=== PATIENT | female | born 1995 | race African-American/Black ===

== ENCOUNTER 2017-10-15 21:39 | Emergency (ER) | payer BC, OTHER ==
[2017-10-15] MEDS ORDERED: Ondansetron ODT TAB* 4 MG PO ONE (22:25)
--- NOTE | 2017-10-15 22:25 | ED ---
Head Injury - HPI Summary HPI Summary: 31-year-old female presents with a head injury today. She denies any vomiting but admits to nausea. She hasn't been taking anything for pain. Denies photophobia. She states she slipped on the wet floor after she had been mopping and fell backwards. She admits to dizziness. She denies any phonophobia. She admits to neck pain but has full range of motion of her neck. She denies any loss of consciousness. She states her headache is mild. - History Of Current Complaint Chief Complaint: EDHeadInjury Stated Complaint: FALL Time Seen by Provider: 10/15/17 21:50 Hx Last Menstrual Period: Implanon Pain Intensity: 8 - Allergies/Home Medications Allergies/Adverse Reactions: Allergies Allergy/AdvReac Type Severity Reaction Status Date / Time No Known Allergies Allergy Verified 10/25/14 10:18 PMH/Surg Hx/FS Hx/Imm Hx Endocrine/Hematology History: Denies: Hx Blood Disorders Cardiovascular History: Denies: Hx Myocardial Infarction Infectious Disease History: No Infectious Disease History: Denies: Traveled Outside the [place] in Last 30 Days - Family History Known Family History: Negative: Seizure Disorder - Social History Alcohol Use: None Substance Use Type: Reports: None Smoking Status (MU): Never Smoked Tobacco Review of Systems Negative: Fever Negative: Chest Pain Negative: Shortness Of Breath Positive: Nausea. Negative: Vomiting Positive: Myalgia - neck pain Positive: Headache All Other Systems Reviewed And Are Negative: Yes Physical Exam Triage Information Reviewed: Yes Vital Signs On Initial Exam: Initial Vitals Temp Pulse Resp BP Pulse Ox 99.0 F 88 16 95/71 100 10/15/17 21:41 10/15/17 21:41 10/15/17 21:41 10/15/17 21:41 10/15/17 21:41 Vital Signs Reviewed: Yes Appearance: Positive: Well-Appearing Skin: Positive: Warm, Dry Head/Face: Positive: Normal Head/Face Inspection, Other - no step off, racoon eyes, danielle sign Eyes: Positive: Normal, EOMI, ZEFERINO, Conjunctiva Clear ENT: Positive: Normal ENT inspection, Pharynx normal, TMs normal Respiratory/Lung Sounds: Positive: Clear to Auscultation, Breath Sounds Present Cardiovascular: Positive: Normal, RRR Musculoskeletal: Positive: Normal, Strength/ROM Intact - neck, Other - no midline tenderness neck Neurological: Positive: Sensory/Motor Intact, Alert, Oriented to Person Place, Time, CN Intact II-III, Finger to Nose - [place] Coma Scale Best Eye Response: 4 - Spontaneous Best Motor Response: 6 - Obeys Commands Best Verbal Response: 5 - Oriented Coma Scale Total: 15 Diagnostics - Vital Signs Vital Signs Temp Pulse Resp BP Pulse Ox 10/15/17 21:41 99.0 F 88 16 95/71 100 - Laboratory Lab Statement: Any lab studies that have been ordered have been reviewed, and results considered in the medical decision making process. Head Injury Course/Dx Course Of Treatment: 31-year-old female presents with a head injury today. She denies any vomiting but admits to nausea. She hasn't been taking anything for pain. Denies photophobia. She states she slipped on the wet floor after she had been mopping and fell backwards. She admits to dizziness. She denies any phonophobia. She admits to neck pain but has full range of motion of her neck. She denies any loss of consciousness. She states her headache is mild. On exam has no step up and normal neuro exam. Full range of motion of the neck and no midline tenderness. According to the [place] CT rules no imaging is required. We will treat nausea was Zofran and gave referral for primary. Patient understands and agrees with plan. - Diagnoses Differential Diagnosis/HQI/PQRI: Concussion Without LOC, Contusion, Intracranial Bleed Provider Diagnoses: Head injury, Neck pain Discharge - Discharge Plan Condition: Good Disposition: HOME Prescriptions: Ondansetron ODT TAB* [Zofran 4 MG Odt TAB*] 4 mg PO Q6H PRN #16 tab.odt PRN Reason: Nausea Patient Education Materials: Head Injury (ED) Referrals: Non Staff,Doctor [Primary Care Provider] - [facility] [place] [Outside] Additional Instructions: Take zofran every [address] ice on area as needed Take Tylenol or ibuprofen for headache every 6 hours Establish care with primary to follow up with Return to ED if develop vomiting, severe headache, change in behavior, or any new or worsening symptoms
[2017-10-15 22:36] VITALS: BP 123/81
== END 2017-10-15 22:35 | disposition home or self-care (01) ==
LOC: ED 21:39
DX: S09.90XA Unspecified injury of head, initial encounter (principal); W01.0XXA Fall on same level from slipping, tripping and stumbling without subsequent striking against object, initial encounter; Y93.E5 Activity, floor mopping and cleaning; Y92.9 Unspecified place or not applicable; M54.2 Cervicalgia; R11.0 Nausea; R51 Headache
CPT/HCPCS: 99282; A9270-GY

== ENCOUNTER 2018-08-31 10:33 | Emergency (ER) | payer BC ==
[2018-08-31 10:55] VITALS: BP 108/62
--- NOTE | 2018-08-31 11:28 | UC ---
UC General HPI - HPI Summary HPI Summary: Pt presents with c/o right hand pain, erythematous skin and mild swelling. Pt has a "bump" at base of right middle finger palmar aspect that pt describes as a tender lump that had a clear fluid filled vessicle that she lanced and drained at home. Now c/o mild swelling, tenderness and erythema at site. Also, pt has c/o URI like symptoms with cough, nasal congestion, bilateral ear pain and ST. - History of Current Complaint Chief Complaint: UCRespiratory Stated Complaint: DIZZY/CARLSON/FATIGUE/SKIN CONCERN Time Seen by Provider: 08/31/18 11:17 Hx Obtained From: Patient Hx Last Menstrual Period: unknown Onset/Duration: Gradual Onset, Lasting Days, Still Present Timing: Constant Onset Severity: Mild Current Severity: Mild Pain Intensity: 3 Associated Signs & Symptoms: Positive: Edema - Allergy/Home Medications Allergies/Adverse Reactions: Allergies Allergy/AdvReac Type Severity Reaction Status Date / Time No Known Allergies Allergy Verified 08/31/18 10:48 Home Medications: Home Medications Etonogestrel [Nexplanon] 68 mg IMPLANT ONCE 08/31/18 [History Confirmed 08/31/18 ] PMH/Surg Hx/FS Hx/Imm Hx Previously Healthy: Yes - Surgical History Surgical History: None - Family History Known Family History: Negative: Seizure Disorder - Social History Occupation: Employed Full-time Lives: With Family Alcohol Use: None Substance Use Type: None Smoking Status (MU): Never Smoked Tobacco Have You Smoked in the Last Year: No - Immunization History Most Recent Influenza Vaccination: August 2014 Review of Systems All Other Systems Reviewed And Are Negative: Yes Constitutional: Positive: Negative Skin: Positive: Negative Eyes: Positive: Negative ENT: Positive: Negative Respiratory: Positive: Negative Cardiovascular: Positive: Negative Gastrointestinal: Positive: Negative Genitourinary: Positive: Negative Motor: Positive: Decreased ROM - pain with rom right middle finger Neurovascular: Positive: Negative Musculoskeletal: Positive: Arthralgia, Edema, Myalgia Neurological: Positive: Negative Psychological: Positive: Negative Is Patient Immunocompromised?: No Physical Exam Triage Information Reviewed: Yes Appearance: Well-Appearing Vital Signs: Initial Vital Signs Temp 98.9 F 08/31/18 10:49 Pulse 70 08/31/18 10:49 Resp 15 08/31/18 10:49 BP 108/62 12/13/18 10:49 Pulse Ox 100 08/31/18 10:49 Vital Signs Reviewed: Yes Eye Exam: Normal ENT: Positive: Pharyngeal erythema, Nasal congestion Dental Exam: Normal Neck exam: Normal Respiratory Exam: Normal Cardiovascular Exam: Normal Musculoskeletal: Positive: Edema @ - base of right middle finger, thickened skin , callous or wart like with darkened center similar to plantar wart. Pt c/o pain with palpation. erythema extends from base palmar aspect of right middle finger to base of dorsal aspect of right middle finger. Neurological Exam: Normal Psychological Exam: Normal Skin Exam: Other - mild erythema right middle finger palmar aspec tot dorsal aspect, 1cm X 1 cm. callous, wart like area base of right middle finger palamar aspect with darkened center. similar to plantars wart. Course/Dx - Diagnoses Provider Diagnosis: Cellulitis, Wart Discharge - Sign-Out/Discharge Documenting (check all that apply): Patient Departure All imaging exams completed and their final reports reviewed: No Studies - Discharge Plan Condition: Stable Disposition: HOME Prescriptions: Cephalexin CAP* [Keflex 500 CAP*] 500 mg PO Q8H #21 cap Patient Education Materials: Cellulitis (ED), Common Wart (ED), Viral Syndrome (ED) Referrals: Makenzie Damon MD [Primary Care Provider] - As Soon As Possible - Billing Disposition and Condition Condition: STABLE Disposition: Home - Attestation Statements Provider Attestation: I was available for consult. This patient was seen by the MANISHA. The patient was not presented to, seen by, or examined by me. -Cristina
== END 2018-08-31 11:38 | disposition home or self-care (01) ==
LOC: UCCORT 10:33
DX: L03.113 Cellulitis of right upper limb (principal); B07.9 Viral wart, unspecified
CPT/HCPCS: 99212; G0463

== ENCOUNTER 2018-09-22 15:34 | Emergency (ER) | payer BC ==
[2018-09-22 16:32] VITALS: BP 98/67
--- NOTE | 2018-09-22 17:26 | UC ---
Lower Extremity/Ankle HPI - HPI Summary HPI Summary: 22 yo female c/o Left knee pain and swelling s/p basketball injury last evening approx 18:00. Fell backward, may have twisted knee. No p/d/w. No hip pain. No ankle / foot pain. No previous hx knee injury / pain. + ice last night. Took ibuprofen x 1 last night. - History of Current Complaint Chief Complaint: UCLowerExtremity Stated Complaint: LEFT LEG INJURY Time Seen by Provider: 09/22/18 17:25 Hx Obtained From: Patient Hx Last Menstrual Period: 09/01/18 Pain Intensity: 7 - Allergies/Home Medications Allergies/Adverse Reactions: Allergies Allergy/AdvReac Type Severity Reaction Status Date / Time No Known Allergies Allergy Verified 09/22/18 16:23 Home Medications: Home Medications Multivitamin [Multivitamins] 1 cap PO DAILY 09/22/18 [History Confirmed 09/22/18 ] PMH/Surg Hx/FS Hx/Imm Hx Previously Healthy: Yes - Surgical History Surgical History: None - Family History Known Family History: Negative: Seizure Disorder - Social History Alcohol Use: None Substance Use Type: None Smoking Status (MU): Never Smoked Tobacco Have You Smoked in the Last Year: No - Immunization History Most Recent Influenza Vaccination: August 2014 Review of Systems All Other Systems Reviewed And Are Negative: Yes Constitutional: Positive: Negative Skin: Positive: Negative - no bruise + swelling Eyes: Positive: Negative ENT: Positive: Negative Respiratory: Positive: Negative Cardiovascular: Positive: Negative Gastrointestinal: Positive: Negative Genitourinary: Positive: Negative Motor: Positive: Other - see hpi Neurovascular: Positive: Other - see hpi Musculoskeletal: Positive: Other: - see hpi Neurological: Positive: Negative Psychological: Positive: Negative Is Patient Immunocompromised?: No Physical Exam Triage Information Reviewed: Yes Appearance: Well-Appearing, Well-Nourished Vital Signs: Initial Vital Signs Temp 97.5 F 09/22/18 16:24 Pulse 83 09/22/18 16:24 Resp 16 09/22/18 16:24 BP 98/67 09/22/18 16:24 Pulse Ox 100 09/22/18 16:24 Vital Signs Reviewed: Yes Eye Exam: Normal - grossly nad ENT Exam: Normal - grossly nad Neck exam: Normal Respiratory Exam: Normal - resp rate normal No tachypnea, no dyspnea. Cardiovascular Exam: Normal - HR normal. Nondiaphoretic. Abdominal Exam: Normal Abdomen Description: Positive: Nontender Musculoskeletal Exam: Other - Left post knee swelling (perez's cyst?) + swelling ant inf knee with mild crepitus. ++ tender lat knee, and lat rotation. Painful to straighten, better slightly bent. Able to ambulate but with limp Neurological Exam: Normal - Distal + sens present LT Psychological Exam: Normal Skin Exam: Normal - see jailene woods re knee Lower Extremity Course/Dx - Course Course Of Treatment: Reviewed coa / tx plan. Questions as posed answered to the best of my ability. Crutches highly recommended. F/u PCP, routine. R/u Orthodist, referral today (or pt may call pcp for referral). Reviewed xray with pt. Prelim reading + sts, + effusion, no fx. Reviewed that formal radiology reading will be completed tomorrow. Declined vikki here, will acquire outpt knee wrap. Reviewed coa / tx plan. Questions as posed answered to the best of my ability. - Differential Dx/Diagnosis Provider Diagnosis: Left knee injury, Left knee sprain Discharge - Sign-Out/Discharge Documenting (check all that apply): Patient Departure All imaging exams completed and their final reports reviewed: No - Discharge Plan Condition: Stable Disposition: HOME Prescriptions: Ibuprofen TAB* [Motrin TAB* 600 MG] 600 mg PO Q8H PRN #30 tab PRN Reason: Pain Patient Education Materials: Knee Sprain (ED), Crutch Instructions (ED), Swollen Knee Joint (ED) Forms: *Work Release Referrals: Blas Figueroa MD [Medical Doctor] - Makenzie Damon MD [Primary Care Provider] - Additional Instructions: Follow up with your primary care physician, per routine. Call next week to let her know how you are doing. You should follow up with an orthopedic doctor in the next 1-2 weeks. Seek medical attention sooner for worse or new problems in the meantime. Elevate your leg as much as possible. Minimize activity until otherwise clarified by orthopedic doctor. - Billing Disposition and Condition Condition: STABLE Disposition: Home
[2018-09-22] MEDS ORDERED: Ibuprofen TAB* 600 MG PO ONE (17:35)
--- NOTE | 2018-09-25 09:51 | UC ---
- Progress Note Progress Note: Patient Name: SIXTO RESENDIZ Medical Record#: [id number] Ordering Physician: Jeniffer Ashby MD Acct.#: [id number] : 1995 Age: 22 Sex: F Location: [facility] Exam Date: 09/22/181733 ADM Status: [facility] ER Order Information: KNEE LEFT 4+ VWS Accession Number: [id number] CPT: 13756 INDICATION: Left knee pain and swelling after basketball injury the previous night COMPARISON: None TECHNIQUE: 4 view radiograph of the left knee. FINDINGS: The visualized bones are well-corticated and properly aligned. The joint spaces are properly maintained. There is no radiographic evidence of joint effusion. There is no acute fracture, dislocation or other focal bony abnormality. IMPRESSION: Normal knee radiograph as described above. If the patient's symptoms persist, follow-up imaging is recommended. R2 Preliminary Imaging Read R2 <Electronically signed by Mayito Hernandez MD in OV> 09/23/18726 Dictated By: Mayito Hernandez MD Dictated Date/Time: 09/23/18726 Transcribed Date/Time: 09/23/18725 Copy to: CC:Jeniffer Ashyb MD; Makenzie Damon MD Imaging - [facility] Imaging [facility]gent [facility] [address] [place] [address] ph ([phone]) ph ([phone]) ph ([phone]) This report is only to be considered final once signed by the Provider(s) as displayed in the "<Electronically Signed by >" field (s). Absence of a signature indicates the report is in a draft status and still needs to be finalized. In the event this document was created by someone other than the signing Provider, the individual initiating the document will be listed in the "Entered by:" or "Dictated by:" donovan. 1 of 1 Course/Dx - Diagnoses Provider Diagnoses: Left knee injury, Left knee sprain Discharge - Sign-Out/Discharge Documenting (check all that apply): Post-Discharge Follow Up All imaging exams completed and their final reports reviewed: Yes - Discharge Plan Condition: Stable Disposition: HOME Prescriptions: Ibuprofen TAB* [Motrin TAB* 600 MG] 600 mg PO Q8H PRN #30 tab PRN Reason: Pain Patient Education Materials: Knee Sprain (ED), Crutch Instructions (ED), Swollen Knee Joint (ED) Forms: *Work Release Referrals: Blas Figueroa MD [Medical Doctor] - Makenzie Damon MD [Primary Care Provider] - Additional Instructions: Follow up with your primary care physician, per routine. Call next week to let her know how you are doing. You should follow up with an orthopedic doctor in the next 1-2 weeks. Seek medical attention sooner for worse or new problems in the meantime. Elevate your leg as much as possible. Minimize activity until otherwise clarified by orthopedic doctor. - Billing Disposition and Condition Condition: STABLE Disposition: Home
== END 2018-09-22 18:55 | disposition home or self-care (01) ==
LOC: UCCORT 15:34
DX: S89.92XA Unspecified injury of left lower leg, initial encounter (principal); S83.92XA Sprain of unspecified site of left knee, initial encounter; W19.XXXA Unspecified fall, initial encounter; Y93.67 Activity, basketball; Y92.9 Unspecified place or not applicable
CPT/HCPCS: 99213; A9270-GY; G0463

== ENCOUNTER 2019-05-05 16:16 | Emergency (ER) | payer BC ==
--- NOTE | 2019-05-05 16:20 | UC ---
Respiratory Complaint HPI - HPI Summary HPI Summary: Patient presents to urgent care stating for the last 6 days she's had fevers to 101.2 max. Patient states she is been taking antipyretics. Patient's visual yesterday she's developed a cough is productive of thick green sputum. Patient denies nausea or vomiting. States she has some chest discomfort related to coughing. Patient is denies shortness of breath. No abdominal pain. No nausea vomiting or diarrhea. Patient's been able to eat and drink okay. Patient's significant other was evaluated at urgent care this week and diagnosed with pharyngitis and started on antibiotics. States he is trying to feel better. Patient does not have a sore throat. Patient is not immunocompromised. States she is not . Medications reviewed this visit. - History of Current Complaint Stated Complaint: FEVER,COUGH Time Seen by Provider: 05/05/19 16:19 Hx Obtained From: Patient Hx Last Menstrual Period: 09/01/18 - Allergies/Home Medications Allergies/Adverse Reactions: Allergies Allergy/AdvReac Type Severity Reaction Status Date / Time No Known Allergies Allergy Verified 05/05/19 16:22 PMH/Surg Hx/FS Hx/Imm Hx Previously Healthy: Yes - Surgical History Surgical History: None - Family History Known Family History: Positive: Non-Contributory Negative: Seizure Disorder - Social History Lives: With Family Alcohol Use: None Substance Use Type: None Smoking Status (MU): Never Smoked Tobacco Have You Smoked in the Last Year: No - Immunization History Most Recent Influenza Vaccination: August 2014 Review of Systems All Other Systems Reviewed And Are Negative: Yes Constitutional: Positive: Fever, Fatigue Respiratory: Positive: Cough Cardiovascular: Positive: Negative Gastrointestinal: Positive: Negative Genitourinary: Positive: Negative Motor: Positive: Negative Neurovascular: Positive: Negative Musculoskeletal: Positive: Negative Neurological: Positive: Negative Psychological: Positive: Negative Is Patient Immunocompromised?: No Physical Exam - Summary Physical Exam Summary: Vital Signs Reviewed: Yes A+Ox3, no distress Eyes: Conjunctiva Clear, ZEFERINO. 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 Coughing decreased. Patient still has respiratory wheezing bilaterally however coarse sounds have improved. Review chest x-ray with patient. We'll put on Doxy. Albuterol. Patient given work note for Tuesday as well as Tuesday. Patient strict return precautions. Comfortable in agreement with plan. Respiratory Course/Dx - Course Course Of Treatment: Patient presents with 5-6 days of fevers and 2 days of productive green sputum. Patient also with fatigue. Patient's been taking [id number] cough medicine as well as antipyretics for fevers the MAXIMUM TEMPERATURE of 102. Patient states she continues to feel run down. Significant I was present antibiotics for pharyngitis this week. Vital signs are stable. Patient does have coarse breath sounds bilaterally right more than left. We'll check chest x -ray give a DuoNeb reassessed patient comfortable in agreement with plan. - Differential Dx/Diagnosis Provider Diagnosis: Pneumonia Discharge - Sign-Out/Discharge Documenting (check all that apply): Patient Departure All imaging exams completed and their final reports reviewed: No Studies - Discharge Plan Condition: Stable Disposition: HOME Prescriptions: Albuterol HFA INHALER* [Ventolin HFA Inhaler*] 2 puff INH Q4H PRN #1 mdi PRN Reason: wheeze DOXYcycline CAP(*) [DOXYcycline 100MG CAP(*)] 100 mg PO BID #20 cap Inhaler, Assist Devices [Aerochamber Mv] 1 each PO Q4HR #1 spacer Patient Education Materials: Pneumonia (ED) Forms: *Gen. Provider Communication, *Work Release Referrals: Makenzie Damon MD [Primary Care Provider] - Additional Instructions: -Take antibiotics exactly as prescribed until gone -Use your albuterol puffer - 2 puffs every 4 hours for the next 2 days - then as needed -Stay well hydrated - avoid excess caffeine and all alcohol - eat regular, healthy meals - - humidify the air in the room where you sleep - boil water, run a hot steam shower, vaporizer, cups of water by heat register - okay to take over the counter decongestant and cough medication -- These infections are spread by secretions - do NOT share eating or drinking utensils - clean items you share with other people such as cell phones, computer mouse, TV remote, computer tablets,etc.. Once you have been antibiotics for 2 days, change your toothbrush and your pillowcase. -get plenty of restful sleep -Contact your doctor to arrange a follow-up appointment this week. Call your doctor, return here or go to the emergency department with any questions or concerns - Billing Disposition and Condition Condition: STABLE Disposition: Home
[2019-05-05 16:25] VITALS: BP 121/70
[2019-05-05] MEDS ORDERED: Albuterol/Ipratropium NEB.SOL* Albuterol 2.5 MG/Ipratropium 0.5 MG 3 ML INH ONE (16:31)
== END 2019-05-05 17:17 | disposition home or self-care (01) ==
LOC: UCCORT 16:16
DX: J18.9 Pneumonia, unspecified organism (principal)
CPT/HCPCS: 71046; 99212; A9270-GY; G0463

== ENCOUNTER 2021-09-29 14:33 | Inpatient (IN) ==
[2021-09-29 16:03] LABS: Urine Benzodiazepine Screen None Detected (None Detect); Urine Cannabinoids Screen None Detected (None Detect); Urine Opiates Screen None Detected (None Detect)
[2021-09-29] MEDS ORDERED: Buffered Lidocaine 1% SYRIN 1 ml INTRADERM ONE (17:45)
[2021-09-29] MEDS ORDERED: Lactated Ringers 1000 ml BAG 1,000 ML IV ONE (17:45)
[2021-09-29] MEDS ORDERED: Lactated Ringers 1000 ml BAG 1,000 ML IV SCH (18:00)
[2021-09-29] MEDS ORDERED: Nalbuphine 10 MG/ML 1 ML VIAL IM PRN (21:15)
[2021-09-29] MEDS ORDERED: Promethazine INJ(RESTRICTED) 25 MG/ML 1 ml VIAL IM ONE (21:15)
[2021-09-29 23:25] LABS: ABS Lymphocytes 1.2 10^3/ul (1.0-4.8); ABS Monocytes 0.4 10^3/ul (0-0.8); ABS Neutrophils 6.2 10^3/ul (1.5-7.7); Eosinophil % 0.1 %; Hematocrit 36 % (35-47); Hemoglobin 12.3 g/dL (12.0-16.0); Lymphocyte % 15.6 %; Mean Corpuscular HGB Conc 34 g/dL (31-36); Mean Corpuscular Hemoglobin 29 pg (27-31); Mean Corpuscular Volume 86 fL (80-97); Platelet Count 187 10^3/uL (150-450); Red Blood Count 4.21 10^6 /uL (3.70-4.87); Red Cell Distribution Width 14 % (10-15); White Blood Count 7.9 10^3/uL (3.5-10.8)
[2021-09-29] MEDS ORDERED: Oxytocin in LR 20 UNITS/1,000 ML BAG IVPB SCH (23:45)
[2021-09-29 23:54] LABS: Albumin 3.3 g/dL (3.2-5.2); Calcium 8.6 mg/dL (8.6-10.3); Globulin 3.2 g/dL (2-4); Potassium 3.7 mmol/L (3.5-5.0); Total Bilirubin 0.4 mg/dL (0.2-1.0); Total Protein 6.5 g/dL (6.4-8.9); Uric Acid 4.1 mg/dL (2.3-6.6); eGFR CKD-EPI 132.6 (>60)
[2021-09-30] MEDS ORDERED: Terbutaline INJ 1 MG/ML 1 ml VIAL ONE (00:33)
[2021-09-30] MEDS ORDERED: Sodium Citrate/Citric Acid LIQ 15 ML UDC ONE ×2 (00:43→00:48)
[2021-09-30] MEDS ORDERED: ceFOXitin 2 GM IVPREMIX 0 GM/0 ML BAG ONE (00:43)
[2021-09-30] MEDS ORDERED: ceFOXitin 2 GM IVPREMIX 2 GM/50 ML BAG ONE (00:48)
[2021-09-30] MEDS ORDERED: ceFOXitin 2 GM IVPREMIX 2 GM/50 ML BAG IVPB ONE (00:50)
[2021-09-30] MEDS ORDERED: Oxytocin 10 UNITS/ML 1 ML VIAL ONE (00:55)
[2021-09-30] MEDS ORDERED: Morphine PF AMP (0.5MG/ML) 5 MG/10 ML AMP ONE (00:56)
[2021-09-30] MEDS ORDERED: Phenylephrine 40 mcg/mL 10mL (400mcg) SYRINGE ONE (01:15)
[2021-09-30] MEDS ORDERED: Dexamethasone IV 4 MG/ML VIAL 1 ml VIAL ONE (01:48)
[2021-09-30] MEDS ORDERED: Sodium Citrate/Citric Acid LIQ 15 ML UDC PO ONE (01:53)
[2021-09-30] MEDS ORDERED: Naloxone 0.4 mg VIAL 0.4 mg/ml 1 ml VIAL IV PRN ×2 (01:54→01:56)
[2021-09-30] MEDS ORDERED: fentaNYL 100 mcg/2 ml 50 MCG/ML VIAL IV PRN (01:54)
[2021-09-30] MEDS ORDERED: diPHENhydraMINE IV 50 MG/ML 1 ml VIAL (BENADRYL) IV PRN (01:56)
[2021-09-30] MEDS ORDERED: HYDROcodone/ACETAMIN 5/325 mg TAB PO PRN (01:56)
[2021-09-30] MEDS ORDERED: DiMENhydriNATE IV 50 mg/ml 1 ml VIAL IV PUSH PRN (01:56)
[2021-09-30] MEDS ORDERED: Ondansetron 4 mg VIAL 2 MG/ML 2 ml VIAL IV PRN (01:56)
[2021-09-30] MEDS ORDERED: Naloxone 4 mg VIAL (10 ml) 2 MG in NS 0.9% 250 ml 250 ML IV PRN (01:56)
[2021-09-30] MEDS ORDERED: Lactated Ringers 1000 ml BAG 1,000 ML IV SCH ×2 (02:00→03:00)
[2021-09-30] MEDS ORDERED: Acetaminophen IV 1 GM/100ML 100 ML IV PRN (02:07)
[2021-09-30] MEDS ORDERED: Glycerin ADULT 2.4 gm SUPP PR PRN (02:24)
[2021-09-30] MEDS ORDERED: Witch Hazel PAD JAR TOPICAL PRN (02:24)
[2021-09-30] MEDS ORDERED: Varicella Virus Vaccine Live 0.5 ML VIAL SUBCUT ONE (09:00)
[2021-10-01 06:50] LABS: ABS Lymphocytes 2.2 10^3/ul (1.0-4.8); ABS Monocytes 0.7 10^3/ul (0-0.8); ABS Neutrophils 7.7 10^3/ul (1.5-7.7); Eosinophil % 0.3 %; Hematocrit 28 % (35-47); Hemoglobin 9.4 g/dL (12.0-16.0); Lymphocyte % 20.3 %; Mean Corpuscular HGB Conc 34 g/dL (31-36); Mean Corpuscular Hemoglobin 30 pg (27-31); Mean Corpuscular Volume 87 fL (80-97); Mean Platelet Volume 8.6 fL (7.4-10.4); Platelet Count 176 10^3/uL (150-450); Red Blood Count 3.16 10^6 /uL (3.70-4.87); Red Cell Distribution Width 14 % (10-15); White Blood Count 10.6 10^3/uL (3.5-10.8)
[2021-10-03 08:23] VITALS: BP 103/80
[2021-10-03] MEDS ORDERED: Varicella Virus Vaccine Live 0.5 ML VIAL SUBCUT ONE (11:00)
== END 2021-10-03 12:30 | disposition home or self-care (01) | DRG 560 ==
LOC: MCHOBOUT 14:33 → MCHOB 16:46
PROVIDERS: ADMIT Midwife; ATTEND Obstetrics & Gynecology